=== PATIENT | female | born 1965 | race Caucasian/White ===

== ENCOUNTER 2023-11-24 12:17 | Outpatient (CLI) | payer MEDICAID | END 2023-11-24 23:59 | disposition home or self-care (01) | LOC: MRI 12:17 | PROVIDERS: ATTEND Nurse Practitioner | DX: M47.816 Spondylosis without myelopathy or radiculopathy, lumbar region (principal); M54.50 Low back pain, unspecified; R20.2 Paresthesia of skin; M51.36 Other intervertebral disc degeneration, lumbar region | CPT/HCPCS: 72148 ==